=== PATIENT | male | born 1990 | race Caucasian/White ===

== ENCOUNTER 2017-07-12 22:48 | Emergency (ER) | payer BC, OTHER ==
[2017-07-13] MEDS ORDERED: NS 0.9% 1000 ML* 1,000 ML IV ONE (01:57)
[2017-07-13] MEDS ORDERED: Ondansetron INJ* 2 MG/ML VIAL IV ONE (01:57)
[2017-07-13] MEDS ORDERED: Morphine INJ* 2 MG/ML 1 ML SYRINGE IV ONE (01:57)
[2017-07-13 02:25] LABS: Urine Bilirubin Negative (Negative); Urine Glucose Negative (Negative); Urine Nitrite Negative (Negative)
[2017-07-13 02:27] LABS: Hematocrit 51 % (42-52); Mean Corpuscular HGB Conc 34 g/dl (31-36); Mean Corpuscular Hemoglobin 28 pg (27-31); Mean Corpuscular Volume 83 fL (80-94); Mean Platelet Volume 8 um3 (7.4-10.4); Red Blood Count 6.12 10^6/ul (4.0-5.4); Red Cell Distribution Width 16 % (10.5-15); White Blood Count 10.2 10^3/ul (3.5-10.8)
[2017-07-13 03:05] LABS: ALT 58 U/L (7-52); AST 35 U/L (13-39); Albumin 4.3 g/dL (3.2-5.2); Alkaline Phosphatase 37 U/L (34-104); Anion Gap 7 mmol/L (2-11); BUN/Creatinine Ratio 11.9 (8-20); Blood Urea Nitrogen 16 mg/dL (6-24); C Reactive Protein < 1.00 mg/L (< 5.00); CO2 Carbon Dioxide 25 mmol/L (22-32); Calcium 9.4 mg/dL (8.6-10.3); Chloride 105 mmol/L (101-111); EGFR African American 81.6 (>60); EGFR Non-African American 63.5 (>60); Globulin 2.9 g/dL (2-4); Glucose 91 mg/dL (70-100); Lipase 40 U/L (11.0-82.0); Magnesium 2.4 mg/dL (1.9-2.7); Potassium 3.6 mmol/L (3.5-5.0); Sodium 137 mmol/L (133-145); Total Protein 7.2 g/dL (6.4-8.9)
[2017-07-13] MEDS ORDERED: Iohexol 300* (CONTRAST) 10 ML SDV IV ONE (04:00)
--- NOTE | 2017-07-13 04:11 | ED ---
Stephani Cat Rebecca, scribed for Zeeshan Andrews MD on 07/13/17 at 0158 . Abdominal Pain/Male - HPI Summary HPI Summary: Pt is a 26 y/o M who presents to ED c/o RLQ abd pain. Sx began gradually tonight at 2200 while laying down and have been constant since onset, just recently starting to slightly improve. Currently pain is moderate, ranked 5/10. Sx aggravated and alleviated by nothing. Additionally c/o epistaxis prior to onset of abd pain and slight nausea. Denies vomiting and fever. PMHx diverticulitis with a foot of intestine removed about 1 year ago. - History of Current Complaint Chief Complaint: EDAbdPain Stated Complaint: ABD PAIN RT SIDE,COLD SWEATS Time Seen by Provider: 07/13/17 01:52 Hx Obtained From: Patient Onset/Duration: Still Present Timing: Constant Severity Initially: Severe - 8/10 Severity Currently: Moderate Pain Intensity: 5 Pain Scale Used: 0-10 Numeric Location: Discrete At: RLQ Aggravating Factor(s): Nothing Alleviating Factor(s): Nothing Associated Signs And Symptoms: Positive: Nausea. Negative: Fever, Vomiting - Allergies/Home Medications Allergies/Adverse Reactions: Allergies Allergy/AdvReac Type Severity Reaction Status Date / Time Bee Venom Allergy Difficulty Verified 09/29/16 11:29 Breathing PMH/Surg Hx/FS Hx/Imm Hx GI History: Reports: Other GI Disorders - DIVERTICULITIS Sensory History: Denies: Hx Contacts or Glasses, Hx Hearing Aid Opthamlomology History: Denies: Hx Contacts or Glasses - Surgical History Surgery Procedure, Year, and Place: COLOSTOMY 07/30/16 Hx Anesthesia Reactions: No Infectious Disease History: No Infectious Disease History: Denies: Traveled Outside the [place] in Last 30 Days - Family History Known Family History: Positive: Other - pancreatic CA Negative: Cardiac Disease - Social History Alcohol Use: Occasionally Hx Substance Use: No Substance Use Type: Reports: None Hx Tobacco Use: No Smoking Status (MU): Never Smoked Tobacco Review of Systems Negative: Fever Positive: Epistaxis - resolved Positive: Abdominal Pain - RLQ, Nausea. Negative: Vomiting All Other Systems Reviewed And Are Negative: Yes Physical Exam Triage Information Reviewed: Yes Vital Signs On Initial Exam: Initial Vitals Temp Pulse Resp BP Pulse Ox 98.8 F 103 18 179/85 97 07/12/17 23:05 07/12/17 23:05 07/12/17 23:05 07/12/17 23:05 07/12/17 23:05 Vital Signs Reviewed: Yes Appearance: Positive: Well-Appearing, Pain Distress - mild discomfort Skin: Positive: Warm Head/Face: Positive: Normal Head/Face Inspection Eyes: Positive: JUAN CARLOS ENT: Positive: Hearing grossly normal Neck: Positive: Supple Respiratory/Lung Sounds: Positive: Clear to Auscultation, Breath Sounds Present Cardiovascular: Positive: RRR Abdomen Description: Positive: Soft, Other: - mild rlq tenderness. Negative: Distended, Guarding Bowel Sounds: Positive: Present Musculoskeletal: Positive: Strength/ROM Intact Neurological: Positive: Sensory/Motor Intact, Alert, Oriented to Person Place, Time Psychiatric: Positive: Affect/Mood Appropriate - Santos Coma Scale Coma Scale Total: 15 Diagnostics - Vital Signs Vital Signs Temp Pulse Resp BP Pulse Ox 07/13/17 00:35 99.1 F 80 16 140/78 97 07/12/17 23:05 98.8 F 103 18 179/85 97 - Laboratory Result Diagrams: 07/13/17 02:15 07/13/17 02:15 Lab Statement: Any lab studies that have been ordered have been reviewed, and results considered in the medical decision making process. - CT CT Abd/Pel CT Interpretation: No Acute Changes - Status post partial colectomy. Moderate colonic stool burden. No evidence of intestinal obstruction, perforation, colitis, enteritis, acute diverticular disease, or an intra-abrominal or pelvic abscess. The appendix is not visualized with certainty, however, there is no evidence of a right lower quadrant inflammatory process to suggest acute appendicitis. No free fluid. ED physician reviewed this radiology report and agrees. CT Interpretation Completed By: Radiologist Re-Evaluation - Re-Evaluation First Eval Change: Improved Abdominal Pain Fem Course/Dx - Course Assessment/Plan: Pt is a 26 y/o M who presents to ED c/o RLQ abd pain. Sx began gradually tonight at 2200 while laying down and have been constant since onset, just recently starting to slightly improve. Currently pain is moderate, ranked 5 /10. Sx aggravated and alleviated by nothing. Additionally c/o epistaxis prior to onset of abd pain and slight nausea. Denies vomiting and fever. PMHx diverticulitis with a foot of intestine removed about [address] Abd/Pel reveals no acute findings. UA is negative. In the ED course, pt received morphine, zofran and fluids. He will be D/C to home with Dx of abodminal pain with a follow up with his PCP. He understands and agrees. Elevated BP noted and advised to f/u with PCP. - Diagnoses Provider Diagnoses: Abdominal pain Discharge - Discharge Plan Condition: Stable Disposition: HOME Patient Education Materials: Acute Abdominal Pain (ED) Referrals: Citlaly Roman NP [Primary Care Provider] - 3 Days The documentation as recorded by the Stephani nash Rebecca accurately reflects the service I personally performed and the decisions made by me, Zeeshan Andrews MD.
[2017-07-13 05:02] VITALS: BP 132/75
--- NOTE | 2017-07-13 08:12 | RAD ---
CLINICAL HISTORY: Lower abdominal pain COMPARISON: July 30, 2016 TECHNIQUE: Multiple contiguous axial CT scans were obtained of the abdomen and pelvis after the administration of intravenous contrast. Coronal and sagittal multiplanar reformations are submitted for review. Oral contrast was administered. Delayed images were obtained through the abdomen and pelvis. FINDINGS: LUNG BASES: The lung bases are clear. LIVER: The liver is diffusely low in attenuation compared to the spleen. There are no focal hepatic parenchymal masses. The liver measures 22 cm in long axis. BILE DUCTS: There is no intrahepatic or extrahepatic biliary dilatation. GALLBLADDER: The gallbladder is normal, without pericholecystic inflammatory change. PANCREAS: The pancreas is normal, without mass or ductal dilatation. SPLEEN: Normal in size and appearance. UPPER GI TRACT: Evaluation of the gastrointestinal tract is limited by incomplete gastric distention. The upper GI tract is unremarkable. SMALL BOWEL AND MESENTERY: The small bowel is normal in contour, course, and caliber. There is no obstruction or dilatation. COLON: There is postsurgical change to the distal colon. The appendix is not clearly visualized. There is no inflammatory change within the right upper quadrant. ADRENALS: Normal bilaterally. KIDNEYS: The kidneys are normal in shape, size, contour, and axis. There is no hydronephrosis or nephrolithiasis. BLADDER: The bladder is smooth in contour. PELVIC ORGANS: The prostate gland is normal. The seminal vesicles are symmetric. AORTA: The aorta is normal. IVC: Unremarkable LYMPH NODES: There is no lymphadenopathy by size criteria. ABDOMINAL WALL: There is no evidence for abdominal wall hernia. BONES AND SOFT TISSUES: Minimal degenerative changes are noted OTHER: None IMPRESSION: 1. HEPATOMEGALY WITH FATTY INFILTRATION OF THE LIVER. 2. POSTSURGICAL CHANGE TO THE COLON. 3. THE APPENDIX IS NOT VISUALIZED. THERE IS NO APPRECIABLE INFLAMMATORY CHANGE IN THE RIGHT LOWER QUADRANT.
== END 2017-07-13 05:01 | disposition home or self-care (01) ==
LOC: ED 22:48
DX: R10.31 Right lower quadrant pain (principal); R04.0 Epistaxis; K76.0 Fatty (change of) liver, not elsewhere classified
CPT/HCPCS: 36415; 74177; 80053; 81003; 83605; 83690; 83735; 85025; 86140; 96374; 96375; 99282; J2405; Q9967

== ENCOUNTER 2018-12-02 19:34 | Emergency (ER) | payer BC, OTHER ==
[2018-12-02] MEDS ORDERED: Fluorescein Sodium TOPICAL* 1 MG TEST STRIP OPHTHALMIC ONE (20:07)
[2018-12-02] MEDS ORDERED: Proparacaine 0.5% OPHTH.SOL* 15 ML BTL LEFT EYE ONE (20:07)
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
[2018-12-02] MEDS ORDERED: Gentamicin 0.3% OPHTH.SOLN* 5 ML BTL LEFT EYE SCH (22:00)
[2018-12-02 22:28] VITALS: BP 169/96
== END 2018-12-02 22:26 | disposition home or self-care (01) ==
LOC: ED 19:34
DX: S05.02XA Injury of conjunctiva and corneal abrasion without foreign body, left eye, initial encounter (principal); S00.212A Abrasion of left eyelid and periocular area, initial encounter; H53.8 Other visual disturbances; R11.0 Nausea; R51 Headache; Y09 Assault by unspecified means; Y92.149 Unspecified place in prison as the place of occurrence of the external cause
CPT/HCPCS: 70450; 99282; A9270-GY

== ENCOUNTER 2019-06-29 13:54 | Emergency (ER) | payer SELFPAY ==
[2019-06-29] MEDS ORDERED: Famotidine IV* 10 MG/ML 2 ML (20 mg) ONE (13:58)
[2019-06-29] MEDS ORDERED: Albuterol (2.5 MG) 0.5 % CONC 2.5 MG/0.5 ML NEB.SOLN (ICU and ED only) INH ONE (13:59)
[2019-06-29] MEDS ORDERED: EPINEPHRINE 1 MG/ML 1 ML VIAL ONE (14:00)
[2019-06-29] MEDS ORDERED: diPHENhydraMINE IV* 50 MG/ML 1 ml VIAL (BENADRYL) ONE (14:00)
[2019-06-29] MEDS ORDERED: methylPREDNISolone 125 MG* 2 ML VIAL ONE (14:00)
[2019-06-29] MEDS ORDERED: NS 0.9% 1000 ML** 1,000 ML IV ONE (14:02)
--- NOTE | 2019-06-29 14:48 | ED ---
Allergic Reaction/Systemic - HPI Summary HPI Summary: This pt is a 28 Y/O M presenting [facility] with a CC of being stung by a bee 3 times [employer]. He states that he was gardening when he was stung by the bee. He stated that he is allergic to bee stings. He stated that he is itchy over his body. He currently denies any pain, hives, swelling of the tongue or throat, and SOB. He stated that he took 50 mg of Benadryl prior to arrival to [facility]. He has no alleviating factors. - History of Current Complaint Chief Complaint: EDAllergicReaction Time Seen by Provider: 06/29/19 14:02 Hx Obtained From: Patient Onset/Duration: Sudden Onset, Still Present Timing: Constant Severity Initially: Mild Severity Currently: None Pain Intensity: 0 Pain Scale Used: 0-10 Numeric Location: Diffuse Aggravating Factor(s): Other - bee sting Alleviating Factor(s): Nothing Associated Signs And Symptoms: Positive: Negative - SOB, swollen tongue, swollen throat., Other: - POSITIVE: itchyness over his entire body.. Negative: Difficulty Breathing, Throat Tightening - Related Hx Possible Reaction To: Animal - bee stings - Allergies/Home Medications Allergies/Adverse Reactions: Allergies Allergy/AdvReac Type Severity Reaction Status Date / Time bee venom protein (honey bee) Allergy Difficulty Verified 12/02/18 19:52 Breathing PMH/Surg Hx/FS Hx/Imm Hx Previously Healthy: Yes Endocrine/Hematology History: Denies: Hx Diabetes Cardiovascular History: Denies: Hx Hypertension GI History: Reports: Other GI Disorders - DIVERTICULITIS History: Denies: Hx Dialysis, Hx Renal Disease Sensory History: Denies: Hx Contacts or Glasses, Hx Hearing Aid Opthamlomology History: Denies: Hx Contacts or Glasses Neurological History: Denies: Hx Developmental Delay Psychiatric History: Denies: Hx Autism - Surgical History Surgery Procedure, Year, and Place: COLOSTOMY 07/30/16 Hx Anesthesia Reactions: No Infectious Disease History: No Infectious Disease History: Denies: Traveled Outside the [place] in Last 30 Days - Family History Known Family History: Positive: None - no known heart disease, Other - pancreatic CA Negative: Cardiac Disease - Social History Alcohol Use: Daily Hx Substance Use: No Substance Use Type: Reports: None Hx Tobacco Use: No Smoking Status (MU): Never Smoked Tobacco Review of Systems ENT: Negative - swollen tongue and throat Negative: Chest Pain Negative: Shortness Of Breath Skin: Other - Pt states his body is itchy All Other Systems Reviewed And Are Negative: Yes Physical Exam - Summary Physical Exam Summary: VITAL SIGNS: Reviewed. GENERAL: Patient is a well-developed and nourished male who is lying comfortable in the stretcher. Patient is not in any acute respiratory distress. HEAD AND FACE: No signs of trauma. No ecchymosis, hematomas or skull depressions. No sinus tenderness. EYES: PERRLA, EOMI x 2, No injected conjunctiva, no nystagmus. EARS: Hearing grossly intact. Ear canals and tympanic membranes are within normal limits. MOUTH: No swelling of the tongue or lips NECK: Supple, trachea is midline, no adenopathy, no JVD, no carotid bruit, no c- spine tenderness, neck with full ROM. CHEST: Symmetric, no tenderness at palpation LUNGS: Clear to auscultation bilaterally. No wheezing or crackles. CVS: Regular rate and rhythm, S1 and S2 present, no murmurs or gallops appreciated. ABDOMEN: Soft, non-tender. No signs of distention. No rebound no guarding, and no masses palpated. Bowel sounds are normal. EXTREMITIES: FROM in all major joints, no edema, no cyanosis or clubbing. NEURO: Alert and oriented x 3. No acute neurological deficits. Speech is normal and follows commands. SKIN: Dry and warm, Flushed in the face, chest, LE Triage Information Reviewed: Yes Vital Signs On Initial Exam: Initial Vitals Temp Pulse Resp BP Pulse Ox 98.0 F 120 26 151/102 99 06/29/19 13:59 06/29/19 13:59 06/29/19 13:59 06/29/19 13:59 06/29/19 13:59 Vital Signs Reviewed: Yes Diagnostics - Vital Signs Vital Signs Temp Pulse Resp BP Pulse Ox 06/29/19 13:59 98.0 F 120 26 151/102 99 - Laboratory Lab Statement: Any lab studies that have been ordered have been reviewed, and results considered in the medical decision making process. Allergic Reaction Course/Dx - Course Assessment/Plan: This pt is a 28 Y/O M presenting to [facility] with a CC of being stung by a bee 3 times [employer]. He states that he was gardening when he was stung by the bee. He stated that he is allergic to bee stings. He stated that he is itchy over his body. He currently denies any pain, hives, swelling of the tongue or throat, and SOB. He stated that he took 50 mg of Benadryl prior to arrival to [facility]. He has no alleviating factors. In the ED course the patient was given Solu-Medrol, Benadryl, and Pepcid. The patient also was given IV fluids. The patient is feeling better after these medications. Patient reports that he doesnt have any crusting of the throat, swelling of the tongue , swelling of the lips. He was observed for approximately 2- hours and the symptoms resolved. Therefore the patient will be discharged home with follow- up with PCP. Patient is hemolyticus stable alert oriented 3 - Diagnoses Provider Diagnoses: Allergic reaction, Bee sting Discharge - Sign-Out/Discharge Documenting (check all that apply): Patient Departure - discharge Patient Received Moderate/Deep Sedation with Procedure: No - Discharge Plan Condition: Stable Disposition: HOME Prescriptions: diPHENhydraMINE PO* [Benadryl PO 25 MG TAB*] 25 mg PO TID PRN #30 tab PRN Reason: Allergy Symptoms EPINEPHrine [Epipen 2-Benji] 0.3 mg IM ONCE #1 inj predniSONE [Prednisone 20 MG TAB] 20 mg PO DAILY #10 tablet Patient Education Materials: Insect Bite or Sting (ED), Anaphylaxis (ED) Referrals: [facility] [Outside] - 2 Days Additional Instructions: FOLLOW UP WITH YOUR PRIMARY CARE PROVIDER WITHIN ONE WEEK. RETURN TO THE ED FOR ANY WORSENING OR NEW SYMPTOMS. - Billing Disposition and Condition Condition: STABLE Disposition: Home - Attestation Statements Document Initiated by Vickey: Yes Documenting Scribe: Yonathan Nuñez Provider For Whom Vickey is Documenting (Include Credential): Ismael García MD Scribe Attestation: Yonathan Cat scribed for Ismael García MD on 06/29/19 at 1858. Scribe Documentation Reviewed: Yes Provider Attestation: The documentation as recorded by the Yonathan nash accurately reflects the service I personally performed and the decisions made by , Ismael García MD Status of Scribe Document: Viewed
[2019-06-29 16:28] VITALS: BP 153/64
== END 2019-06-29 16:26 | disposition home or self-care (01) ==
LOC: ED 13:54
DX: T63.441A Toxic effect of venom of bees, accidental (unintentional), initial encounter (principal); L29.9 Pruritus, unspecified; Y92.096 Garden or yard of other non-institutional residence as the place of occurrence of the external cause; Z91.030 Bee allergy status
CPT/HCPCS: 99283; J1200; J2930; J7611

== ENCOUNTER 2020-01-29 08:21 | Emergency (ER) | payer SELFPAY ==
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
[2020-01-29] MEDS ORDERED: Cyclobenzaprine TAB* 10 MG PO ONE (08:36)
[2020-01-29] MEDS ORDERED: oxyCODONE/Acetamin 5/325 MG* TAB PO ONE (08:36)
[2020-01-29 08:47] LABS: ABS Basophils 0.1 10^3/ul (0-0.2); ABS Eosinophils 0.2 10^3/ul (0-0.6); ABS Lymphocytes 1.6 10^3/ul (1.0-4.8); ABS Monocytes 0.6 10^3/ul (0-0.8); ABS Neutrophils 5.8 10^3/ul (1.5-7.7); Eosinophil % 1.9 %; Hematocrit 51 % (42-52); Hemoglobin 17.6 g/dL (14.0-18.0); Lymphocyte % 19.8 %; Mean Corpuscular HGB Conc 35 g/dL (31-36); Mean Corpuscular Hemoglobin 29 pg (27-31); Mean Corpuscular Volume 85 fL (80-94); Mean Platelet Volume 7.4 fL (7.4-10.4); Platelet Count 324 10^3/uL (150-450); Red Blood Count 5.99 10^6 /uL (4.18-5.48); Red Cell Distribution Width 15 % (10-15); White Blood Count 8.3 10^3/uL (3.5-10.8)
[2020-01-29 09:05] LABS: Albumin 4.4 g/dL (3.2-5.2); Albumin/Globulin Ratio 1.7 (1-3); BUN/Creatinine Ratio 7.6 (8-20); EGFR African American 76.5 (>60); EGFR Non-African American 63.3 (>60); Globulin 2.6 g/dL (2-4); Total Bilirubin 0.9 mg/dL (0.2-1.0)
[2020-01-29] MEDS ORDERED: Iohexol 350* (CONTRAST) 500 ML MDV IV ONE (09:41)
[2020-01-29] MEDS ORDERED: NS 0.9% 1000 ML** 1,000 ML IV ONE (09:53)
[2020-01-29 11:41] VITALS: BP 133/76
== END 2020-01-29 11:40 | disposition home or self-care (01) ==
LOC: ED 08:21
DX: M54.2 Cervicalgia (principal); R51 Headache; M79.672 Pain in left foot; S60.511A Abrasion of right hand, initial encounter; V40.5XXA Car driver injured in collision with pedestrian or animal in traffic accident, initial encounter; Y92.410 Unspecified street and highway as the place of occurrence of the external cause
CPT/HCPCS: 36415; 70450; 70496; 71046; 72125; 80053; 85025; 99283; A9270-GY; Q9967